=== PATIENT | female | born 1980 | race African-American/Black ===

== ENCOUNTER 2017-02-01 11:06 | Emergency (ER) | payer OTHER ==
[2017-02-01 11:23] VITALS: BP 125/71
--- NOTE | 2017-02-01 12:39 | UC ---
Abdominal Pain Female HPI - HPI Summary HPI Summary: complaint of intermittent abdominal pain and cramping that started yesterday denies any vaginal bleeding currently 13 weeks - BERNY 08/08/17 embyro transfer was done 11/2016 finished a treatment for yeast infection with monostat seen by HAIR ASSISTANT 2 weeks ago denies fever,N/V/D, dysuria, edema , headache - History of Current Complaint Chief Complaint: UCAbdominalPain Stated Complaint: ABD PAIN/CRAMPING WITH 13WK PREG Time Seen by Provider: 02/01/17 12:32 Hx Obtained From: Patient Allergies/Adverse Reactions: Allergies Allergy/AdvReac Type Severity Reaction Status Date / Time No Known Allergies Allergy Verified 02/01/17 11:23 Home Medications: Home Medications Vitamin TAB* 1 tab PO DAILY 02/01/17 [History Confirmed 02/01/17] PMH/Surg Hx/FS Hx/Imm Hx Previously Healthy: Yes Endocrine History Of: Reports: Thyroid Disease Denies: Diabetes Cardiovascular History Of: Denies: Cardiac Disorders, Hypertension Respiratory History Of: Denies: COPD - Surgical History Surgical History: Yes Surgery Procedure, Year, and Place: 4 uterine fibroids and right tube removed - Family History Known Family History: Negative: Cardiac Disease, Hypertension, Diabetes - Social History Occupation: Employed Full-time Lives: With Family Alcohol Use: None Substance Use Type: None Smoking Status (MU): Never Smoked Tobacco Review of Systems Constitutional: Negative Skin: Negative Eyes: Negative ENT: Negative Respiratory: Negative Cardiovascular: Negative Gastrointestinal: Abdominal Pain Genitourinary: Negative Motor: Negative Neurovascular: Negative Musculoskeletal: Negative Neurological: Negative Psychological: Negative All Other Systems Reviewed And Are Negative: Yes Physical Exam Triage Information Reviewed: Yes Appearance: No Pain Distress, Well-Nourished Vital Signs: Initial Vital Signs Temp 98.1 F 02/01/17 11:19 Pulse 105 02/01/17 11:19 Resp 16 02/01/17 11:19 BP 125/71 02/01/17 11:19 Pulse Ox 100 02/01/17 11:19 Vital Signs Reviewed: Yes Eyes: Positive: Conjunctiva Clear ENT: Positive: Pharynx normal, TMs normal Neck: Positive: Supple Respiratory: Positive: Lungs clear, Normal breath sounds, No respiratory distress, No accessory muscle use Cardiovascular: Positive: RRR, No Murmur, Pulses Normal Abdomen Description: Positive: Nontender, No Organomegaly, Soft. Negative: CVA Tenderness (R), CVA Tenderness (L) Bowel Sounds: Positive: Present Musculoskeletal: Positive: No Edema Neurological: Positive: Alert Psychological Exam: Normal Skin Exam: Normal Abd Pain Female Course/Dx - Course Course Of Treatment: exam completed. due to and abdominla pain will transfer pt to higher level of care so she can get an ultrasound completed today - Differential Dx/Diagnosis Differential Diagnosis: Diverticulitis, Gall Bladder Disease, Other - preganancy , miscarraige Provider Diagnoses: abdominal pain. 13 weeks - Physician Notification/Consults Discussed Patient Care With: Missy Aleman RN- no provider available at this time Time Discussed With Above Provider: 13:01 Discharge - Discharge Plan Condition: Stable Disposition: TRANS HIGHER LVL OF CARE FAC Referrals: Jaquan Sales MD [Primary Care Provider] -
== END 2017-02-01 12:43 | disposition short-term general hospital (02) ==
LOC: UCEAST 11:06
DX: O26.891 Other specified pregnancy related conditions, first trimester (principal); R10.84 Generalized abdominal pain; Z3A.13 13 weeks gestation of pregnancy; E07.9 Disorder of thyroid, unspecified
CPT/HCPCS: 99212; G0463

== ENCOUNTER 2017-02-01 13:03 | Emergency (ER) | payer OTHER ==
[2017-02-01 13:20] VITALS: BP 135/74
--- NOTE | 2017-02-01 15:25 | ED ---
I, Oh,Roxy, scribed for Rika Banks MD on 02/01/17 at 1506 . Abdominal Pain/Female - HPI Summary HPI Summary: This 36 y/o female presents to ED from [facility] for diffuse abd crampping and vaginal discomfort since yesterday. She initially dismissed the discomfort as recent yeast infection and probably due to applicator use, but decided to visit ED when discomfort persist today. Pt is currently 16 weeks . It is reported that [facility] center staffs weren't able to detect embryo's heart sound. Negative vaginal bleeding, discharge, or dysuria. A3. PMHx includes fertility issues with recent embryo transfer. She is currently on vitamin supplement, but denies any other medications. Primary care involves Dr. Salse. - History of Current Complaint Chief Complaint: EDOBProblems Stated Complaint: ABD PAIN Time Seen by Provider: 02/01/17 14:47 Hx Obtained From: Patient, Medical Records Onset/Duration: Gradual Onset, Resolved Timing: Constant Pain Intensity: 0 Pain Scale Used: 0-10 Numeric Location: Diffuse Radiates: No Aggravating Factor(s): Nothing Alleviating Factor(s): Nothing Associated Signs and Symptoms: Negative: Vaginal Bleeding, Vaginal Discharge Allergies/Adverse Reactions: Allergies Allergy/AdvReac Type Severity Reaction Status Date / Time No Known Allergies Allergy Verified 02/01/17 13:16 PMH/Surg Hx/FS Hx/Imm Hx Endocrine/Hematology History: Reports: Hx Thyroid Disease Denies: Hx Diabetes Cardiovascular History: Denies: Hx Hypertension Respiratory History: Denies: Hx Chronic Obstructive Pulmonary Disease (COPD) - Surgical History Surgery Procedure, Year, and Place: 4 uterine fibroids and right tube removed Infectious Disease History: No Infectious Disease History: 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 Negative: dysuria, discharge All Other Systems Reviewed And Are Negative: Yes Physical Exam - Summary Physical Exam Summary: Bedside US performed. heart sound, movement, and kicking discerned all during the bedside US. Triage Information Reviewed: Yes Vital Signs On Initial Exam: Initial Vitals Temp Pulse Resp BP Pulse Ox 98.5 F 89 18 135/74 100 02/01/17 13:16 02/01/17 13:16 02/01/17 13:16 02/01/17 13:16 02/01/17 13:16 Vital Signs Reviewed: Yes Appearance: Positive: Well-Appearing, No Pain Distress Head/Face: Positive: Normal Head/Face Inspection Eyes: Positive: EOMI, SCOT Neck: Positive: Supple, Nontender Respiratory/Lung Sounds: Positive: Clear to Auscultation, Breath Sounds Present Cardiovascular: Positive: RRR, Pulses are Symmetrical in both Upper and Lower Extremities Abdomen Description: Positive: Nontender, Soft Musculoskeletal: Positive: Strength/ROM Intact Neurological: Positive: Sensory/Motor Intact, Alert, Oriented to Person Place, Time Psychiatric: Positive: Affect/Mood Appropriate AVPU Assessment: Alert Diagnostics - Vital Signs Vital Signs Temp Pulse Resp BP Pulse Ox 02/01/17 13:16 98.5 F 89 18 135/74 100 - Laboratory Lab Statement: Any lab studies that have been ordered have been reviewed, and results considered in the medical decision making process. Abdominal Pain Fem Course/Dx - Course Course Of Treatment: with ob nurse did bedside ultrasound with hr at 155 and lots of movement of fetus. Pt knows this is limited but was happy to see fetus and has close f/u and did not want further studies - Diagnoses Provider Diagnoses: Discharge - Discharge Plan Condition: Stable Disposition: HOME Patient Education Materials: Abdominal Pain in (ED) Referrals: Jaquan Sales MD [Primary Care Provider] - 2 Days The documentation as recorded by the Kota bonilla Soohyun accurately reflects the service I personally performed and the decisions made by me, Rika Banks MD.
== END 2017-02-01 15:22 | disposition home or self-care (01) ==
LOC: ED 13:03
DX: Z34.90 Encounter for supervision of normal pregnancy, unspecified, unspecified trimester (principal); R10.9 Unspecified abdominal pain; R10.2 Pelvic and perineal pain
CPT/HCPCS: 99282

== ENCOUNTER 2017-07-26 19:43 | Inpatient (IN) | payer OTHER ==
[2017-07-26 20:23] LABS: ROM Internal QC QC Line Present
[2017-07-26] MEDS ORDERED: ceFOXitin 2 GM IVPREMIX* 2 GM/50 ML BAG IVPB ONE (21:27)
[2017-07-26] MEDS ORDERED: Morphine PF AMP (0.5MG/ML)* 5 MG/10 ML AMP ONE (21:48)
[2017-07-26 21:50] LABS: Hematocrit 34 % (35-47); Hemoglobin 11.4 g/dl (12.0-16.0); Mean Corpuscular HGB Conc 34 g/dl (31-36); Mean Corpuscular Hemoglobin 27 pg (27-31); Mean Corpuscular Volume 81 fL (80-97); Mean Platelet Volume 9 um3 (7.4-10.4); Red Blood Count 4.19 10^6/ul (4.0-5.4); Red Cell Distribution Width 15 % (10.5-15); White Blood Count 7.4 10^3/ul (3.5-10.8)
[2017-07-26] MEDS ORDERED: Phenylephrine INJ* 10 MG/ML 1 ML VIAL (10 MG) ONE (21:52)
[2017-07-26] MEDS ORDERED: DiMENhydriNATE IV* 50 MG/ML VIAL IV PUSH PRN (21:54)
[2017-07-26] MEDS ORDERED: Ketorolac INJ* 30 MG/ML 1 ML VIAL IV PRN (21:54)
[2017-07-26] MEDS ORDERED: fentaNYL* 50 MCG/ML 2 ML VIAL (100 MCG VIAL) IV PRN (21:54)
[2017-07-26] MEDS ORDERED: ceFOXitin 2 GM IVPREMIX* 2 GM/50 ML BAG ONE (22:03)
[2017-07-26] MEDS ORDERED: Sodium Citrate/Citric Acid* 15 ML UDC ONE (22:03)
[2017-07-26] MEDS ORDERED: Ondansetron INJ* 2 MG/ML VIAL ONE (23:08)
[2017-07-26] MEDS ORDERED: OXYTOCIN* 10 UNITS/ML 1 ML VIAL ONE (23:08)
[2017-07-26] MEDS ORDERED: Ondansetron INJ* 2 MG/ML VIAL IV PRN (23:23)
[2017-07-26] MEDS ORDERED: Nalbuphine* 20 MG/ML 1 ML VIAL IV PRN (23:23)
[2017-07-26] MEDS ORDERED: Naloxone* 0.4 MG/ML 1 ML VIAL IV PRN (23:23)
[2017-07-26] MEDS ORDERED: Scopolamine 1.5 mg* PATCH TRANSDERM PRN (23:23)
[2017-07-26] MEDS ORDERED: Naloxone* 2 MG in NS 0.9% 250 ML* 250 ML IV PRN (23:23)
[2017-07-26] MEDS ORDERED: oxyCODONE/Acetamin 5/325 MG* TAB PO PRN (23:23)
[2017-07-26] MEDS ORDERED: diPHENhydraMINE IV* 50 MG/ML 1 ml VIAL (BENADRYL) IV PRN (23:23)
[2017-07-26] MEDS ORDERED: Witch Hazel PAD* JAR TOPICAL PRN (23:40)
[2017-07-26] MEDS ORDERED: Dibucaine 1% 28.35 GM TUBE PR PRN (23:40)
[2017-07-26] MEDS ORDERED: Zolpidem TAB* 5 MG PO PRN (23:40)
[2017-07-26] MEDS ORDERED: Glycerin ADULT SUPP PR PRN (23:40)
[2017-07-27] MEDS: Ketorolac INJ* 30 MG/ML 1 ML VIAL IV PRN ×4 (00:36→19:45)
[2017-07-27] MEDS: HYDROcodone/ACETAMIN 5-325 MG* 1 TAB PO PRN (03:32)
[2017-07-27 06:33] LABS: Hematocrit 28 % (35-47); Hemoglobin 9.4 g/dl (12.0-16.0); Mean Corpuscular HGB Conc 33 g/dl (31-36); Mean Corpuscular Hemoglobin 27 pg (27-31); Mean Corpuscular Volume 80 fL (80-97); Mean Platelet Volume 8 um3 (7.4-10.4); Red Blood Count 3.49 10^6/ul (4.0-5.4); Red Cell Distribution Width 15 % (10.5-15); White Blood Count 7.4 10^3/ul (3.5-10.8)
[2017-07-27] MEDS: Simethicone TAB* 80 MG TAB.CHEW PO SCH ×4 (08:13→21:16)
[2017-07-27] MEDS: Docusate CAP* 100 MG PO SCH ×3 (08:13→21:17)
[2017-07-27] MEDS: Ferrous Gluconate TAB* 324 MG TAB PO SCH ×2 (08:13→21:16)
[2017-07-27] MEDS ORDERED: oxyCODONE/Acetamin 5/325 MG* TAB PO PRN ×2 (14:33)
[2017-07-27] MEDS ORDERED: Acetaminophen TAB* 325 MG PO PRN (14:33)
--- NOTE | 2017-07-27 23:56 | OP ---
CC: Dr. Bernstein.* DATE OF SURGERY: 07/26/17 - ROOM #[facility]-117 DATE OF : 78 SURGEON: Henry Cazares MD. PSYCHIATRIC SECRETARY SURGEON: Dr. Bernstein. ANESTHESIA: Spinal. PRE-OP DIAGNOSIS: Intrauterine at 38 weeks with spontaneous rupture of membranes and a prior myomectomy. POST-OP DIAGNOSIS: Intrauterine at 38 weeks with spontaneous rupture of membranes and a prior myomectomy. OPERATIVE PROCEDURE: Primary low-transverse section. ESTIMATED BLOOD LOSS: 600 cc. SPECIMEN SENT TO PATHOLOGY: Cord blood. IV FLUIDS: She received 2900 cc of IV crystalloid fluids. URINE OUTPUT: Clear. FINDINGS: Delivery of a viable male with a weight of 7 pounds 6 ounces with Apgars of 9 and 9. Placenta was grossly intact with a 3-vessel cord noted. The uterus, adnexa, bowel, and bladder were all within normal limits. DESCRIPTION OF PROCEDURE: The patient was taken to the operating room where she was identified. She was placed on the operating room table where a spinal anesthetic was obtained without difficulty. She was then placed in the supine position with a leftward tilt, prepped and draped in a normal sterile fashion. A Pfannenstiel skin incision was made with a knife and carried through to the underlying layer of fascia. The fascia was nicked in the midline and extended laterally with curved Alvarenga scissors. The fascia was grasped superiorly and inferiorly with Latha clamps and dissected off sharply from the recuts muscle. The rectus muscle was in the midline bluntly. The peritoneum was identified, grasped with pickups, entered sharply with Metzenbaum scissors and extended superiorly and inferiorly. A bladder blade was inserted into the patient's abdomen. A bladder flap was then created using Metzenbaum scissors over which the bladder blade was then reinserted. A low transverse uterine incision was made with a knife, extended laterally with bandage scissors. The amniotic sac was ruptured. The 's head was then grasped and delivered atraumatically. The rest of the 's body was then delivered. The cord was clamped and cut and the was handed off to awaiting research program manager. Cord bloods were obtained. The placenta was then removed manually. The uterus was then exteriorized, cleared of all clot and debris using moist laparotomy sponges. The uterine incision was then closed using 0 Polysorb suture in a running locked fashion with a second imbricating layer of 0 Polysorb suture. The uterus was then returned to the patient's abdomen, and the gutters were then cleared of all clot and debris using moist laparotomy sponges. The sponges were then removed from the patient's abdomen. The peritoneum was then closed using 3-0 Polysorb suture in a running fashion. The fascia was closed using 0 Polysorb suture in a running fashion, and the skin was closed with 4-0 Monocryl subcuticular stitch. The patient tolerated the procedure well. Sponge , lap, and needle counts were correct x2. She was then transferred to recovery room area in stable condition. [id number]/[facility] #: [id number] PATTIE
[2017-07-28] MEDS: HYDROcodone/ACETAMIN 5-325 MG* 1 TAB PO PRN ×6 (00:25→23:56)
--- NOTE | 2017-07-28 03:42 | PTEDU ---
Patient Name: MARCELLE WILLIS MARCELLE WILLIS selected video: Follow Me Mum: [employer] to view on 7 at 3:41:03 AM from [id number]
[2017-07-28] MEDS: Docusate CAP* 100 MG PO SCH ×3 (08:36→20:41)
[2017-07-28] MEDS: Ferrous Gluconate TAB* 324 MG TAB PO SCH ×2 (08:36→20:41)
[2017-07-28] MEDS: Ibuprofen TAB* 600 MG PO PRN ×3 (08:36→20:41)
[2017-07-28] MEDS: Simethicone TAB* 80 MG TAB.CHEW PO SCH ×4 (08:37→20:41)
--- NOTE | 2017-07-29 00:01 | PTEDU ---
Patient Name: MARCELLE WILLIS MARCELLE WILLIS selected video: Never Ever Shake a Baby to view on 07/29/2017 at 12:00:55 AM from [facility] [id number]
[2017-07-29] MEDS: Ibuprofen TAB* 600 MG PO PRN (02:37)
[2017-07-29] MEDS: HYDROcodone/ACETAMIN 5-325 MG* 1 TAB PO PRN ×2 (04:04→09:28)
[2017-07-29 08:14] VITALS: BP 118/58
[2017-07-29] MEDS: Simethicone TAB* 80 MG TAB.CHEW PO SCH (09:26)
[2017-07-29] MEDS: Docusate CAP* 100 MG PO SCH (09:27)
[2017-07-29] MEDS: Ferrous Gluconate TAB* 324 MG TAB PO SCH (09:28)
[2017-07-29] MEDS ORDERED: Scopolamine PATCH Remove* 1 NOTE MISC PATCH OFF ONE (23:22)
== END 2017-07-29 11:01 | disposition home or self-care (01) | DRG 766 ==
LOC: MCHOBOUT 19:43 → MCHOB 21:07
PROVIDERS: ADMIT Obstetrics & Gynecology; ATTEND Obstetrics & Gynecology
PROC: 4A1HXCZ Monitoring of Products of Conception, Cardiac Rate, External Approach (ICD-10-PCS; 2017-07-26)
PROC: 10D00Z1 Extraction of Products of Conception, Low, Open Approach (ICD-10-PCS; principal; 2017-07-26 22:23)
DX: O34.29 Maternal care due to uterine scar from other previous surgery (principal); O24.429 Gestational diabetes mellitus in childbirth, unspecified control; Z37.0 Single live birth; Z3A.38 38 weeks gestation of pregnancy
CPT/HCPCS: 36415; 84112; 85025; 85027; 86850; 86900; 86901; A9270-GY; J0694; J1885; J2405; J2590

== ENCOUNTER 2024-01-28 05:58 | Inpatient (IN) ==
[2024-01-28] MEDS ORDERED: Sterile Water for Inj 10 ML ONE (06:28)
[2024-01-28] MEDS ORDERED: Ondansetron 4 mg VIAL 2 MG/ML 2 ml VIAL ONE ×2 (06:28→07:39)
[2024-01-28] MEDS ORDERED: Dexamethasone IV 4 MG/ML VIAL 1 ml VIAL ONE ×2 (06:28→07:39)
[2024-01-28] MEDS ORDERED: Rocuronium 50 mg VIAL 10 mg/ml 5 ml VIAL (50 mg) ONE ×4 (06:28→13:30)
[2024-01-28] MEDS ORDERED: Propofol 10 MG/ML 20 ML BTL ONE ×2 (06:28→14:05)
[2024-01-28] MEDS ORDERED: fentaNYL 100 mcg/2 ml 50 MCG/ML VIAL ONE ×2 (06:28→17:22)
[2024-01-28] MEDS ORDERED: Midazolam 2 mg/2 ml VIAL 1 mg/ml 2 ml VIAL (2 mg) ONE (06:28)
[2024-01-28] MEDS ORDERED: Lidocaine 2% PF 5 ML VIAL ONE ×2 (06:29→14:43)
[2024-01-28] MEDS ORDERED: Sevoflurane BOTTLE ONE (06:29)
[2024-01-28] MEDS ORDERED: Scopolamine 1 mg/72hr PATCH ONE (06:30)
[2024-01-28] MEDS ORDERED: Famotidine IV 10 MG/ML 2 ml VIAL (20 mg) ONE (06:30)
[2024-01-28] MEDS ORDERED: Heparin 5000 UNITS/ML 1 mL VIAL ONE ×2 (06:30→14:26)
[2024-01-28] MEDS ORDERED: Buffered Lidocaine 1% SYRIN 1 ml ONE (06:30)
[2024-01-28 06:38] LABS: Rapid COVID-19 Molecular Undetected (Undetected)
[2024-01-28] MEDS: Buffered Lidocaine 1% SYRIN 1 ml INTRADERM ONE (07:01)
[2024-01-28] MEDS: Famotidine IV 10 MG/ML 2 ml VIAL (20 mg) IV ONE (07:02)
[2024-01-28] MEDS: Lactated Ringers 1000 ml BAG 1,000 ML IV SCH (07:02)
[2024-01-28] MEDS: Scopolamine 1 mg/72hr PATCH TRANSDERM ONE (07:02)
[2024-01-28] MEDS ORDERED: ceFAZolin 2 GM PREMIX 0 GM/0 ML BAG ONE (07:17)
[2024-01-28] MEDS ORDERED: ceFAZolin VIAL VIAL ONE ×2 (07:18→11:50)
[2024-01-28] MEDS ORDERED: Gentamicin ADULT 40 MG/ML VIAL (2 ML VIAL = 80 MG) ONE (07:18)
[2024-01-28] MEDS ORDERED: Povidone Iodine 5% OPTH 30 ML BTL ONE (07:18)
[2024-01-28] MEDS ORDERED: ISOSULFAN BLUE 1% 5 ML VIAL 10 MG/ML SUBCUT ONE (07:39)
[2024-01-28] MEDS ORDERED: Bupivacaine 0.25% SDV 30 ML ONE (07:39)
[2024-01-28] MEDS ORDERED: fentaNYL 250 mcg/5 ml 50 MCG/ML 5 ml VIAL (250 MCG) ONE (08:07)
[2024-01-28] MEDS ORDERED: HYDROmorphone 0.5 MG/0.5 ML SYRINGE ONE ×3 (08:11→13:57)
[2024-01-28] MEDS ORDERED: Acetaminophen IV 1 GM/100ML 1,000 MG/100 ML BAG IV ONE ×2 (08:26→11:57)
[2024-01-28] MEDS ORDERED: ceFAZolin 2 GM PREMIX 2 GM/50 ML BAG ONE (11:52)
[2024-01-28] MEDS ORDERED: Benzocaine/Menthol LOZ PO PRN (12:25)
[2024-01-28] MEDS ORDERED: Levalbuterol HFA INHALER MDI ONE (14:44)
[2024-01-28] MEDS ORDERED: HYDROmorphone 1 MG/1 ML SYRINGE IV PRN (16:26)
[2024-01-28] MEDS ORDERED: Naloxone 0.4 mg VIAL 0.4 mg/ml 1 ml VIAL IV PRN (16:26)
[2024-01-28] MEDS ORDERED: HYDROcodone/ACETAMIN 5/325 mg TAB ONE (17:22)
[2024-01-28] MEDS: HYDROcodone/ACETAMIN 5/325 mg TAB PO PRN ×2 (17:23→20:41)
[2024-01-28] MEDS: fentaNYL 100 mcg/2 ml 50 MCG/ML VIAL IV PRN (17:25)
[2024-01-28] MEDS: Heparin 5000 UNITS/ML 1 mL VIAL SUBCUT SCH (20:42)
[2024-01-28] MEDS: ceFAZolin VIAL 2 GM in NS 0.9% 100 ml BAG 100 ML IVPB SCH (20:49)
[2024-01-28] MEDS: Morphine 2 MG/ML SYRINGE IV PRN (23:27)
[2024-01-30 10:43] VITALS: BP 122/75
[2024-01-31] MEDS ORDERED: Scopolamine 1 mg/72hr PATCH TRANSDERM SCH (07:00)
== END 2024-01-30 12:11 | disposition home or self-care (01) | DRG 362 ==
LOC: AA 05:58 → SSU 18:10
PROVIDERS: ADMIT Student in an Organized Health Care Education/Training Program; ATTEND Student in an Organized Health Care Education/Training Program